=== PATIENT | male | born 1940 | race Caucasian/White ===

== ENCOUNTER → 2017-01-08 | Day surgery (SDC) | payer MEDICARE ==
[~2017-01-08] VITALS: Ht 177.8 cm; Wt 108.9 kg
[~2017-01-08] MED LIST: ACETAMINOPHEN 325 MG TAB PO PRN; ATROPINE SULFATE 1% OP SOLN 2 ML BTL As Ordered ONE; ATROPINE SULFATE 1% OP SOLN 2 ML BTL XX ONE; AcetaZOLAMIDE 500 MG ER CAP PO ONE; BSS with VANC/TOB/EPI for EYE CASES IR ONE; CYCLOPENTOLATE 2% OPHTH SOLN OD ONE; D5W/0.2% SODIUM CHLORIDE 1,000 ML IV ONE; HEALON DUET (HEALON 10MG/ML 0.55ML & HEALON ENDOCOAT 30MG/ML 0.85ML) As Ordered ONE; HEALON DUET (HEALON 10MG/ML 0.55ML & HEALON ENDOCOAT 30MG/ML 0.85ML) XX ONE; KETOROLAC 0.5% OPHTH SOLN OD ONE; LIDOCAINE 1% SDV 5 ML VIAL As Ordered ONE; LIDOCAINE 4% INJ 5 ML AMP OU ONE; MIDAZOLAM INJ 2 MG/2 ML VIAL (J2250) As Ordered ONE; MOXIFLOXACIN IN BSS 0.25MG/0.25ML INTRACAMERAL INJ (OR EYE ONLY)(J2280) As Ordered ONE; MOXIFLOXACIN IN BSS 0.25MG/0.25ML INTRACAMERAL INJ (OR EYE ONLY)(J2280) ICAM ONE; OFLOXACIN 0.3 % (OCUFLOX) OPTH SOL 5ML OD ONE; PHENYLEPHRINE 0.5% NASAL SPRAY 15 ML As Ordered ONE; PHENYLEPHRINE 2.5% OPHTH SOL 2ML As Ordered ONE; PHENYLEPHRINE 2.5% OPHTH SOL 2ML OD ONE; POVIDONE-IODINE 5% OPHTH PREP SOL 30ML As Ordered ONE; PREDOPD OS; PROPARACAINE 0.5% OPHTH SOL 15ML OD PRN; TRIAMCINOLONE PRES FR 40 MG/ML 1ML(TRIESENCE)(OR EYE ONLY)(J3300 PER 1MG) As Ordered ONE; TRIAMCINOLONE PRES FR 40 MG/ML 1ML(TRIESENCE)(OR EYE ONLY)(J3300 PER 1MG) IO ONE; TRIMETHOBENZAMIDE 300 MG CAP PO PRN; TROPICAMIDE 1% OPHTH SOLN 2 ML OD ONE
--- NOTE | 2017-01-08 09:49 | RO ---
DATE OF PROCEDURE: 01/08/2017 PREPROCEDURE DIAGNOSIS: Cataract of right eye. POSTPROCEDURE DIAGNOSIS: Cataract of right eye. PROCEDURE: Femtosecond laser and phacoemulsification of the intraocular lens with lens implantation of Crystalens, AT-50 AO, power 18.5. SURGEON: Suma Bonilla MD ASSISTED LIVING DIRECTOR: None. ANESTHESIA: Local IV standby. FINDINGS: Cataract of right eye. COMPLICATIONS: None. DESCRIPTION OF PROCEDURE: The patient was brought to the operating room and laid in supine position. A lid speculum was placed, and patient was brought under the femtosecond laser. After the satisfactory placement of the patient interface, primary incision, secondary incision, and arcuate incisions with lens fragmentation was done without any complication per plan. The patients interface was then removed and lid speculum removed. Patient was placed under the microscope. The eye was prepped and draped in a sterile fashion for ophthalmic surgery. Lid speculum was placed. The secondary incision was opened, and EndoCoat was injected into the anterior chamber. The temporal clear corneal incision was then opened and capsulorrhexis removed, followed by hydrodissection. This was followed by phacoemulsification of the lens within the capsular bag. Cortical material was then aspirated, and Healon was injected into the capsular bag. Intraocular lens was then placed. Excess Healon was aspirated. Wound was hydrated. The lid speculum was removed, and patient was returned to the recovery room in stable condition.
[2017-01-08 10:35] VITALS: BP 166/81
== END | disposition home or self-care (01) ==
LOC: M SDC 08:25
PROVIDERS: ATTEND Ophthalmology
DX: H26.9 Unspecified cataract (principal); K21.9 Gastro-esophageal reflux disease without esophagitis
CPT/HCPCS: 66984; J2250; J2280; J3300; V2788

== ENCOUNTER → 2017-03-26 | Outpatient (REF) | payer MEDICARE ==
[~2017-03-26] MED LIST changes: -ACETAMINOPHEN 325 MG TAB PO PRN; -ATROPINE SULFATE 1% OP SOLN 2 ML BTL As Ordered ONE; -ATROPINE SULFATE 1% OP SOLN 2 ML BTL XX ONE; -AcetaZOLAMIDE 500 MG ER CAP PO ONE; -BSS with VANC/TOB/EPI for EYE CASES IR ONE; -CYCLOPENTOLATE 2% OPHTH SOLN OD ONE; -D5W/0.2% SODIUM CHLORIDE 1,000 ML IV ONE; -HEALON DUET (HEALON 10MG/ML 0.55ML & HEALON ENDOCOAT 30MG/ML 0.85ML) As Ordered ONE; -HEALON DUET (HEALON 10MG/ML 0.55ML & HEALON ENDOCOAT 30MG/ML 0.85ML) XX ONE; -KETOROLAC 0.5% OPHTH SOLN OD ONE; -LIDOCAINE 1% SDV 5 ML VIAL As Ordered ONE; -LIDOCAINE 4% INJ 5 ML AMP OU ONE; -MIDAZOLAM INJ 2 MG/2 ML VIAL (J2250) As Ordered ONE; -MOXIFLOXACIN IN BSS 0.25MG/0.25ML INTRACAMERAL INJ (OR EYE ONLY)(J2280) As Ordered ONE; -MOXIFLOXACIN IN BSS 0.25MG/0.25ML INTRACAMERAL INJ (OR EYE ONLY)(J2280) ICAM ONE; -OFLOXACIN 0.3 % (OCUFLOX) OPTH SOL 5ML OD ONE; -PHENYLEPHRINE 0.5% NASAL SPRAY 15 ML As Ordered ONE; -PHENYLEPHRINE 2.5% OPHTH SOL 2ML As Ordered ONE; -PHENYLEPHRINE 2.5% OPHTH SOL 2ML OD ONE; -POVIDONE-IODINE 5% OPHTH PREP SOL 30ML As Ordered ONE; -PROPARACAINE 0.5% OPHTH SOL 15ML OD PRN; -TRIAMCINOLONE PRES FR 40 MG/ML 1ML(TRIESENCE)(OR EYE ONLY)(J3300 PER 1MG) As Ordered ONE; -TRIAMCINOLONE PRES FR 40 MG/ML 1ML(TRIESENCE)(OR EYE ONLY)(J3300 PER 1MG) IO ONE; -TRIMETHOBENZAMIDE 300 MG CAP PO PRN; -TROPICAMIDE 1% OPHTH SOLN 2 ML OD ONE
== END ==
LOC: M LABDRAWC 11:38
PROVIDERS: ATTEND Nurse Practitioner Adult Health
DX: I25.10 Atherosclerotic heart disease of native coronary artery without angina pectoris (principal); E78.2 Mixed hyperlipidemia; I10 Essential (primary) hypertension

== ENCOUNTER → 2019-02-12 | Outpatient (REF) | payer MEDICARE ==
[2019-02-12 13:56] LABS: ALBUMIN 3.6 GM/DL (3.2-5.2); ALT/SGPT 18 U/L (12-78); BILIRUBIN,TOTAL 0.6 MG/DL (0.2-1.0); BLOOD UREA NITROGEN 18 MG/DL (7-18); CALCIUM LEVEL 8.6 MG/DL (8.8-10.2); CARBON DIOXIDE LEVEL 31 MEQ/L (21-32); CHLORIDE LEVEL 104 MEQ/L (98-107); CHOLESTEROL LEVEL 205 MG/DL (<200); CREATININE FOR GFR 0.94 MG/DL (0.70-1.30); GLOMERULAR FILTRATION RATE > 60.0 (>42); GLUCOSE, FASTING 85 MG/DL (70-100); HDL CHOLESTEROL 41 MG/DL (>40); LDL CHOLESTEROL 139 MG/DL (<100); NON-HDL-C 164 MG/DL; SODIUM LEVEL 140 MEQ/L (136-145); TOTAL PROTEIN 7.4 GM/DL (6.4-8.2); TRIGLYCERIDES LEVEL 123 MG/DL (<150)
[2019-02-13 14:26] LABS: TESTOSTERONE FREE (DIRECT) 7.8 pg/mL (6.6-18.1)
== END ==
LOC: M SFHCCLAY 09:36
PROVIDERS: ATTEND Family Medicine
DX: I25.10 Atherosclerotic heart disease of native coronary artery without angina pectoris (principal); Z95.5 Presence of coronary angioplasty implant and graft; R03.0 Elevated blood-pressure reading, without diagnosis of hypertension; R68.82 Decreased libido; F52.21 Male erectile disorder

== ENCOUNTER 2020-01-18 22:30 | Inpatient (IN) | payer MEDICARE ==
[~2020-01-18] VITALS: Ht 175.3 cm; Wt 65.0 kg
[2020-01-18] MEDS ORDERED: DOPamine 400 MG/500 ML BAG IN D5W (800MCG/ML) (J1265) As Ordered ONE (22:54)
[2020-01-18] MEDS ORDERED: NS 1,500 ML in IV 1 EA IV ONE (23:00)
[2020-01-18] MEDS ORDERED: NOREPINEPHRINE BITARTRATE 8 MG in D5W 492 ML IV SCH ×2 (23:00→23:56)
[2020-01-18 23:26] LABS: ALBUMIN 3.2 GM/DL (3.2-5.2); ALT/SGPT 38 U/L (12-78); AMYLASE 215 U/L (25-115); BILIRUBIN,DIRECT 0.3 MG/DL (0.0-0.2); BILIRUBIN,TOTAL 0.6 MG/DL (0.2-1.0); BLOOD UREA NITROGEN 92 MG/DL (7-18); C REACTIVE PROTEIN QUANTITATIV 8.25 MG/DL (0.00-0.30); CALCIUM LEVEL 10.2 MG/DL (8.8-10.2); CARBON DIOXIDE LEVEL 20 MEQ/L (21-32); CHLORIDE LEVEL 102 MEQ/L (98-107); CK-MB VALUE MASS 1.1 NG/ML (<3.6); CPK CREATINE PHOSPHOKINASE 55 U/L (39-308); CREATININE FOR GFR 3.34 MG/DL (0.70-1.30); GLOMERULAR FILTRATION RATE 19.2 (>42); GLUCOSE, FASTING 256 MG/DL (70-100); POTASSIUM SERUM 5.4 MEQ/L (3.5-5.1); SODIUM LEVEL 134 MEQ/L (136-145); TOTAL PROTEIN 7.5 GM/DL (6.4-8.2); TROPONIN I < 0.02 NG/ML (< 0.10)
[2020-01-18 23:27] LABS: INR 1.1; PROTHROMBIN TIME 13.9 SECONDS (11.8-14.0)
[2020-01-18] MEDS ORDERED: HumuLIN R (REGULAR) INSULIN (NovoLIN R) **100U/ML** PER UNIT IV STA (23:56)
[2020-01-18] MEDS ORDERED: DEXTROSE 50% 50 ML SYRINGE IV STA (23:56)
[2020-01-19] MEDS ORDERED: IPRATROPIUM 0.5MG/ALBUTEROL 2.5MG INH SOL UD 3ML (DUONEB)(J7620) NEB SCH
[2020-01-19] MEDS ORDERED: ACETAMINOPHEN TAB 650MG DOSE (2X325MG) PO PRN
[2020-01-19] MEDS ORDERED: CALCIUM GLUCONATE 1,000 MG in D5W MINI-BAG PLUS 100 ML IV ONE ×4
[2020-01-19] MEDS ORDERED: SODIUM CHLORIDE 0.9% 1000ML IV SCH
[2020-01-19] MEDS ORDERED: DOPamine HCL 400 MG in IV 1 EA IV SCH ×2
[2020-01-19] MEDS ORDERED: CEFEPIME HCL 2 GM in D5W 50 ML IV SCH ×2
[2020-01-19] MEDS ORDERED: ALBUTEROL SULFATE 2.5 MG/0.5 ML INH NEB SOLN NEB ONE
[2020-01-19] MEDS ORDERED: INFA20DR PO (00:01)
[2020-01-19] MEDS ORDERED: ACET1TAB55 PO (00:01)
[2020-01-19] MEDS ORDERED: BISA10SU4 PR (00:01)
[2020-01-19] MEDS ORDERED: [UNRECOGNIZED DRUG - CODE] PO (00:01)
[2020-01-19] MEDS ORDERED: ENOX40IN3 SC (00:01)
[2020-01-19] MEDS ORDERED: METR-265 PO (00:01)
[2020-01-19] MEDS ORDERED: LOPE2CAP PO (00:01)
[2020-01-19] MEDS ORDERED: FERR324T2 PO (00:01)
[2020-01-19] MEDS ORDERED: MELA5CAP2 PO (00:01)
[2020-01-19] MEDS ORDERED: ENSULIQ9 PO (00:01)
[2020-01-19] MEDS ORDERED: BISM262C8 PO (00:08)
[2020-01-19] MEDS ORDERED: SUCR1TA PO (00:08)
[2020-01-19] MEDS ORDERED: TRAZ-186 PO (00:08)
[2020-01-19] MEDS ORDERED: PANT40TA3 PO (00:08)
[2020-01-19] MEDS ORDERED: PSYLPOW4 PO (00:08)
[2020-01-19] MEDS ORDERED: FLEEENE12 PR (00:12)
[2020-01-19] MEDS ORDERED: MILKSUS3 PO (00:12)
[2020-01-19] MEDS ORDERED: ONDANSETRON 4MG/2ML VIAL (J2405) IV PRN (00:15)
[2020-01-19] MEDS ORDERED: ATROPINE SULFATE 1% OP SOLN 2 ML BTL SL PRN (00:15)
[2020-01-19] MEDS ORDERED: SCOPOLAMINE 1MG TRANSDERMAL PATCH TOP PRN (00:15)
[2020-01-19] MEDS ORDERED: LORazepam 1 MG TAB PO PRN (00:15)
[2020-01-19] MEDS ORDERED: HYOSCYAMINE SULFATE 0.125 MG SUBL TABLET PO PRN (00:15)
[2020-01-19] MEDS ORDERED: MORPHINE 10MG/0.5ML ORAL CONCENTRATE SOLUTION U/D SL PRN (00:15)
[2020-01-19] MEDS ORDERED: MORPHINE 2 MG/ML 1ML VIAL (J2270) IV PRN (00:15)
[2020-01-19] MEDS ORDERED: VANCOMYCIN HCL 1,000 MG, VIAL MATE ADAPTER 1 EACH in D5W 250 ML IV SCH (00:30)
--- NOTE | 2020-01-19 00:35 | HPEPDOC ---
General Date of Admission 01/19/20 Date of Service: Jan 19, 2020 Chief Complaint The patient is a 79-year-old male admitted with a reason for visit of Difficulty Breathing. 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 In the [facility] patient was diagnosed with septic shock, vasopressors was initiated. Also patient developed acute hypoxemic respiratory failure required BiPAP. In emergency room patient was found to have acute kidney failure with hyperkalemia, metabolic acidosis with lactic acid of 6.5. After discussion with healthcare proxy patient was transferred to comfort measure only status. Home Medications Scheduled Enoxaparin Sodium (Enoxaparin Sodium) 40 Mg/0.4 Ml Syringe, 40 MG SC DAILY, (Reported) Ferrous Sulfate (Ferrous Sulfate) 324 Mg Tablet.dr, 324 MG PO DAILY, (Reported) Lactose-Reduced Food (Ensure Plus) 237 Ml Liquid, 237 ML PO 5XD, (Reported) Melatonin (Melatonin) 5 Mg Capsule, 5 MG PO QHS, (Reported) Metronidazole (Metronidazole) 500 Mg Tablet, 500 MG PO BID, (Reported) Pantoprazole Sodium (Pantoprazole Sodium) 40 Mg Tablet.dr, 40 MG PO BID, (Re ported) Psyllium Husk (Psyllium Husk) 1 Gm Powder, 3.4 GM PO BID, (Reported) Sodium Phosphate,[place]-Dibasic (Fleet Enema) 133 Ml Enema, 1 JOSE [place] DAILY, (Reported) GIVE IN AM IF NO RESULTS FROM SUPPOSITORY Sucralfate (Sucralfate) 1 Gm Tablet, 1 GM PO QID, (Reported) Trazodone HCl (Trazodone HCl) 50 Mg Tablet, 25 MG PO QHS, (Reported) Scheduled PRN Acetaminophen (Acetaminophen) 325 Mg Tablet, 650 MG PO Q6H PRN for PAIN, (Re ported) Bisacodyl (Bisacodyl) 10 Mg Supp.rect, 10 MG VA DAILY PRN for CONSTIPATION, (Reported) IF NO BM AFTER MILK OF MAGNESIA Loperamide HCl (Loperamide) 2 Mg Capsule, 4 MG PO TID PRN for AFTER EACH LOOSE STOOL, (Reported) Magnesium Hydroxide (Milk of Magnesia) 400 Mg/5 Ml Oral.susp, 30 ML PO DAILY PRN for CONSTIPATION, (Reported) GIVE AT 1830 IF NO BM AFTER 48HRS Simethicone (Simethicone) 40 Mg/0.6 Ml Drops.susp, 1.9 ML PO QID PRN for GAS PAIN, (Reported) Allergies Coded Allergies: No Known Drug Allergies (Verified Allergy, Unknown, 01/18/20) Past Medical History Medical History Sigmoid adenocarcinoma, diabetes mellitus type II, acid reflux, coronary artery diseases Surgical History Bowel resection with colostomy Family History I personally reviewed family history and found not pertinent Social History Alcohol: Denies Drugs: denies A-FIB/CHADSVASC A-FIB History Current/History of A-Fib/PAF?: No Current PO Anticoag Therapy: No Review of Systems Constitutional: Reports: Malaise, Weakness, Lethargy, Other (unable to obtain all systems review due to lethargy) Pulmonary: Reports: Dyspnea Physical Examination General Exam: Positive: Severe Distress Eye Exam: Positive: PERRLA ENT Exam: Positive: Atraumatic Neck Exam: Positive: Supple Chest Exam: Positive: Rhonchi Heart Exam: Positive: Tachycardic Telemetry: Positive: Atrial fibrillation Abdomen Exam: Positive: BS Hypoactive Extremity Exam: Positive: Cyanosis; Negative: Clubbing Skin Exam: Positive: Other skin issue (cold extremities); Negative: Nl turgor and temperature Neuro Exam: Positive: Reflexes 2+ Psych Exam: Positive: Other (lethargic) Vital Signs Vital Signs Date Time Temp Pulse Resp B/P (MAP) Pulse Ox O2 Delivery O2 Flow Rate FiO2 01/18/20 23:47 125 25 96/65 NIPPV (BIPAP/CPAP) 01/18/20 23:43 10.0 95 01/18/20 23:30 100 01/18/20 23:23 95.6 Laboratory Data Labs 24H Laboratory Tests 2 01/18/20 22:50: Prothrombin Time 13.9, Prothromb Time International Ratio 1.10, Activated Partial Thromboplast Time 20.0L, Anion Gap 12, Glomerular Filtration Rate 19.2L, Lactic Acid Level 6.9*H, Calcium Level 10.2, Total Bilirubin 0.6, Direct Bilirubin 0.3H, Aspartate Amino Transf (AST/SGOT) 30, Alanine Aminotransferase (ALT/SGPT) 38, Alkaline Phosphatase 260H, Total Creatine Kinase 55, Creatine Kinase MB 1.1, Creatine Kinase MB Relative Index 2.00, Troponin I < 0.02, C-Reactive Protein, Quantitative 8.25H, Total Protein 7.5, Albumin 3.2, Albumin/Globulin Ratio 0.74L, Amylase Level 215H CBC/BMP Laboratory Tests 01/18/20 22:50 Microbiology Microbiology 01/18/20 Blood Culture, Received Pending 01/18/20 Blood Culture, Received Pending Assessment/Plan Patient 79 years old male with past medical history of 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 In the [facility] patient was diagnosed with septic shock, vasopressors was initiated. Also patient developed acute hypoxemic respiratory failure required BiPAP. In emergency room patient was found to have acute kidney failure with hyperkalemia, metabolic acidosis with lactic acid of 6.5. After discussion with healthcare proxy patient was transferred to comfort measure only status. Problems (1) Metabolic acidosis Problem Text: See above (2) Acute kidney injury Problem Text: See above (3) Sepsis Status: Acute Problem Text: See above (4) Acute respiratory failure with hypoxia Status: Acute Problem Text: See above Plan / VTE VTE Prophylaxis Ordered?: JABIER Umanzor DO Jan 19, 2020 00:35
[2020-01-19] MEDS ORDERED: NS 800 ML IV SCH (01:00)
[2020-01-19 01:35] VITALS: BP 119/76
--- NOTE | 2020-01-19 03:49 | DS.PDOC ---
Discharge Summary General Date of Admission Jan 18, 2020 at 23:51 Date of Discharge 01/18/2020 Attending Physician: JABIER LEYVA DO Discharge Summary PROCEDURES PERFORMED DURING STAY: [None]. ADMITTING DIAGNOSES: 1. Acute Respiratory Failure with Hypoxia 2. Sepsis DISCHARGE DIAGNOSES: 1. Acute Respiratory Failure with Hypoxia 2. Sepsis COMPLICATIONS/CHIEF COMPLAINT: Acute Resp Failure With Hypoxia, Sepsis. 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 He was transferred from [facility] with acute respiratory failure, septic shock and acute kidney failure. In [facility], the patient was diagnosed with septic shock and vasopressors were initiated. He also developed acute hypoxemic respiratory failure required BiPAP. In our emergency room, he was found to have acute kidney failure with hyperkalemia and metabolic acidosis with lactic acid of 6.5. After discussion with healthcare proxy patient, the patient was made comfort measure only and admitted to the medical floor. HOSPITAL COURSE: Patient was admitted to the medical floor ad at 3:25 AM on 01/19/2020 DISCHARGE MEDICATIONS: Please see below. ALLERGIES: Please see below. LABORATORY DATA: Please see below. DISPOSITION: DISCHARGE CONDITION: TIME SPENT ON DISCHARGE: Greater than 30 minutes. I, Jabier Leyva, have independently examined this patient and performed my own physical exam, as well as reviewed the documentation. I have discussed in detail with the resident / student the findings and plan of treatment as documen iona by the resident / student. I agree with their findings and treatment plan. Vital Signs/I&Os Vital Signs Date Time Temp Pulse Resp B/P (MAP) Pulse Ox O2 Delivery O2 Flow Rate FiO2 01/19/20 01:35 96.9 64 22 119/76 (90) 84 Nasal Cannula 15.0 01/18/20 23:43 95 I&O- Last 24 Hours up to 6 AM 01/19/20 06:00 Intake Total 1000 ml Balance 1000 ml Laboratory Data Labs 24H Laboratory Tests 2 01/18/20 22:50: Prothrombin Time 13.9, Prothromb Time International Ratio 1.10, Activated Partial Thromboplast Time 20.0L, Anion Gap 12, Glomerular Filtration Rate 19.2L, Lactic Acid Level 6.9*H, Calcium Level 10.2, Total Bilirubin 0.6, Direct Bilirubin 0.3H, Aspartate Amino Transf (AST/SGOT) 30, Alanine Aminotransferase (ALT/SGPT) 38, Alkaline Phosphatase 260H, Total Creatine Kinase 55, Creatine Kinase MB 1.1, Creatine Kinase MB Relative Index 2.00, Troponin I < 0.02, C- Reactive Protein, Quantitative 8.25H, Total Protein 7.5, Albumin 3.2, Albumin/Globulin Ratio 0.74L, Amylase Level 215H CBC/BMP Laboratory Tests 01/18/20 22:50 Microbiology Microbiology 01/18/20 Blood Culture, Received Pending 01/18/20 Blood Culture, Received Pending Discharge Medications Scheduled Enoxaparin Sodium (Enoxaparin Sodium) 40 Mg/0.4 Ml Syringe, 40 MG SC DAILY, (Reported) Ferrous Sulfate (Ferrous Sulfate) 324 Mg Tablet.dr, 324 MG PO DAILY, (Reported) Lactose-Reduced Food (Ensure Plus) 237 Ml Liquid, 237 ML PO 5XD, (Reported) Melatonin (Melatonin) 5 Mg Capsule, 5 MG PO QHS, (Reported) Metronidazole (Metronidazole) 500 Mg Tablet, 500 MG PO BID, (Reported) Pantoprazole Sodium (Pantoprazole Sodium) 40 Mg Tablet.dr, 40 MG PO BID, (Reported) Psyllium Husk (Psyllium Husk) 1 Gm Powder, 3.4 GM PO BID, (Reported) Sodium Phosphate,[place]-Dibasic (Fleet Enema) 133 Ml Enema, 1 JOSE [place] DAILY, (Reported) GIVE IN AM IF NO RESULTS FROM SUPPOSITORY Sucralfate (Sucralfate) 1 Gm Tablet, 1 GM PO QID, (Reported) Trazodone HCl (Trazodone HCl) 50 Mg Tablet, 25 MG PO QHS, (Reported) Scheduled PRN Acetaminophen (Acetaminophen) 325 Mg Tablet, 650 MG PO Q6H PRN for PAIN, (Reported) Bisacodyl (Bisacodyl) 10 Mg Supp.rect, 10 MG WA DAILY PRN for CONSTIPATION, (Reported) IF NO BM AFTER MILK OF MAGNESIA Loperamide HCl (Loperamide) 2 Mg Capsule, 4 MG PO TID PRN for AFTER EACH LOOSE STOOL, (Reported) Magnesium Hydroxide (Milk of Magnesia) 400 Mg/5 Ml Oral.susp, 30 ML PO DAILY PRN for CONSTIPATION, (Reported) GIVE AT 1830 IF NO BM AFTER 48HRS Simethicone (Simethicone) 40 Mg/0.6 Ml Drops.susp, 1.9 ML PO QID PRN for GAS PAIN, (Reported) Allergies Coded Allergies: No Known Drug Allergies (Verified Allergy, Unknown, 01/18/20) GME ATTESTATION GME ATTESTATION My faculty preceptor for this patient encounter was physically present during the encounter and was fully available. All aspects of the patient interview, examination, medical decision making process, and medical care plan development were reviewed and approved by the faculty preceptor. The faculty preceptor is aware and concurs with the plan as stated in the body of this note and will attest to such by his/her cosignature. YANELI FLETCHER D.O. Jan 19, 2020 03:49 JABIER LEYVA DO Jan 19, 2020 04:36
--- NOTE | 2020-01-19 07:50 | REP ---
Clinical: Sepsis. Comparison: None. Findings: Diffuse fibrosis and interstitial changes. No obvious focal consolidation. No effusion. No pneumothorax. Mediastinum and cardiac silhouette are normal. Impression: Diffuse chronic fibrosis and interstitial changes. No focal consolidation or effusion. Electronically Signed by Beck Bliss MD 01/19/2020 07:41 A
[2020-01-19] MEDS ORDERED: PANTOPRAZOLE 40MG INJ (PROTONIX) (C9113) IV SCH (09:00)
--- NOTE | 2020-01-19 20:20 | ECGEPIP ---
[facility] - ED Test Date: 2020-01-18 Pat Name: SONIA FAJARDO Department: Room: [place] [address] Gender: Male [employer]: lion : [id number] Requested By: SANDRA Gibson Order Number: [id number] Reading MD: Carolee Skinner Measurements Intervals [place] Rate: 130 P: 81 MO: 163 QRS: 24 QRSD: 116 T: 88 QT: 292 QTc: 430 Interpretive Statements SINUS TACHYCARDIA PROBABLE LOW QRS VOLTAGE IN EXTREMITY LEADS INFERIOR MYOCARDIAL INFARCTION, OF INDETERMINATE AGE NSTTW abnormalities baseline artifact may affect interpretation NO PRIOR Electronically Signed on 01-19-2020 20:20:18 EST by Carolee Skinner
== END 2020-01-19 04:35 | disposition expired | DRG 871 ==
LOC: M ED 22:30 → M ED INP 23:51 → ENRESERVTM 01-19 00:07 → ENRESERVDT 01-19 00:07 → ENRESERVTM 01-19 01:00 → ENRESERVDT 01-19 01:00 → M MSPAV 01-19 01:41
PROVIDERS: ADMIT Internal Medicine; ATTEND Internal Medicine
DX: A41.9 Sepsis, unspecified organism (principal); R65.21 Severe sepsis with septic shock; J96.01 Acute respiratory failure with hypoxia; N17.9 Acute kidney failure, unspecified; C18.7 Malignant neoplasm of sigmoid colon; C79.51 Secondary malignant neoplasm of bone; C78.00 Secondary malignant neoplasm of unspecified lung; E87.2 Acidosis; E87.5 Hyperkalemia; Z51.5 Encounter for palliative care; Z79.899 Other long term (current) drug therapy; I25.10 Atherosclerotic heart disease of native coronary artery without angina pectoris; K21.9 Gastro-esophageal reflux disease without esophagitis; E11.9 Type 2 diabetes mellitus without complications